=== PATIENT | female | born 1940 | race Caucasian/White ===

== ENCOUNTER → 2017-12-12 | Outpatient (CLI) | payer OTHER ==
[~2017-12-12] MED LIST: ACCUNEB1.25 MG/3; ACETAMINOPHEN325 M1 PO; ALBUTEROL INHAL17 GM IH; ALEVE220 MG PO; AMBIEN 10 MG TA10 MG PO; ASPIRIN81 M2 PO; AZITHROMYCIN 2250 MG PO; B-100 COMPLEX100 MG; B-12 COMPL1000 MCG/1 IJ; B-12 DOTS500 MCG PO; B12INJ; B12INJ IM; BACTRIM DS TAB1 EACH PO; BROVANA15 MCG/2 M IH; CALTRATE-600 W1 EACH; CALTRATE-600 W1 EACH PO; CENTRUM CHEWAB1 EACH; CENTRUM TABLET1 TAB PO; CIPRO500 MG/5 M PO; CITRATE OF MAG296 ML PO; CLONAZEPAM; CLONAZEPAM 1 MG1 M1; CLONAZEPAM 1 MG1 M1 PO; CYMBALTA60 MG PO; Cefuroxime PO; DULCOLAX5 MG PO; DUONEB 2.5-0.5 M3 ML INH; ERYTHROMYCIN250 MG PO; FISH OIL 1,0001 EAC5 PO; FLAGYL500 MG PO; FLEXERIL PO; FLORINEF ACETA0.1 MG PO; FORMULA 303 PO; HYDROCODONE-AP1 EAC6 PO; LAMISIL250 MG PO; LORTAB 5 MG/5001 TA1; LYRICA 75 MG CA75 MG PO; LYRICA150 MG PO; MEDROL DOSPAK21 TAB PO; MEDROLDOSEPACK PO; METROGEL60 GM TOP; MIRTAZAPINE7.5 MG; MOBIC15 MG; NOHOMEMEDICATIONS; NORCO 5-325 TA1 EACH PO; OMEGA-31000 MG; OMEGA-31000 MG PO; OMEPRAZOLE; OMEPRAZOLE40 MG PO; PANTOPRAZOLE SO40 M1 PO; PERCOCET 5-3251 EACH PO; POTASSIUM; PREDNISONE 10 M10 M1; PREDNISONE 10 M10 M1 PO; PRESERVISION T1 EACH PO; PRILOSEC40 MG; PRILOSEC40 MG PO; PROTONIX40 M2 PO; PULMICORT0.5 MG/2 M IH; SINGULAIR 10 MG10 M1 PO; TAMSULOSIN HCL0.4 M1 PO; VALIUM5 MG PO; VICODIN 5-5001 EACH PO; VITAMIN B 12; VITAMIN B-12500 MCG PO; ZOFRAN ODT4 MG PO; ZOFRAN4 MG PO; Zovirax PO; [UNRECOGNIZED DRUG - OTHER]; [UNRECOGNIZED DRUG - OTHER]; [UNRECOGNIZED DRUG - OTHER] PO; [UNRECOGNIZED DRUG - OTHER] PO
== END ==
LOC: M.RAD 13:50
DX: Z12.31 Encounter for screening mammogram for malignant neoplasm of breast (principal); M81.0 Age-related osteoporosis without current pathological fracture; Z78.0 Asymptomatic menopausal state

== ENCOUNTER → 2020-08-22 | Emergency (ER) | payer OTHER ==
[~2020-08-22] VITALS: Ht 152.4 cm; Wt 54.0 kg
[~2020-08-22] MED LIST changes: +ASA81BEC PO; +ATORVASTATIN CA10 MG PO; +HYDROCODON-ACE1 EAC7 PO
[2020-08-22 09:55] LABS: URINE BILIRUBIN NEGATIVE (Negative); URINE BLOOD TRACE (Negative); URINE CLARITY CLEAR; URINE COLOR YELLOW; URINE GLUCOSE-RANDOM NEGATIVE (Negative); URINE KETONES NEGATIVE (Negative); URINE LEUKOCYTES-REFLEX NEGATIVE (Negative); URINE NITRITE-REFLEX NEGATIVE (Negative); URINE PROTEIN NEGATIVE (Negative); URINE SPECIFIC GRAVITY 1.015 (1.005-1.030); URINE UROBILINOGEN 0.2 E.U./dl (0.2-1.0)
[2020-08-22 10:24] LABS: ABSOLUTE EOSINOPHILS 0.2 thou/uL (0.0-0.7); ABSOLUTE LYMPHOCYTES 2.3 thou/uL (0.8-5.3); ABSOLUTE MONOCYTES 0.7 thou/uL (0.0-1.2); BASOPHILS 0.3 %; EOSINOPHILS 2.6 %; MCH 30.3 pg (26.0-34.0); MCHC 33.2 g/dL (28.0-37.0); MCV 91.3 fL (80.0-100.0); MONOCYTES 9.4 %; MPV 8.9 fl. (7.2-11.1); NUCLEATED RBCS 0 /100WBC; PLATELET COUNT* 227 thou/uL (150-400); POLYS 55.7 %; RBC 4.27 mil/uL (4.20-5.00); RDW-CV 14.1 % (10.5-14.5); WBC 7.1 thou/uL (4.0-11.0)
[2020-08-22 10:38] LABS: CALCIUM 9.2 mg/dL (8.5-10.1); CREATININE 0.9 mg/dL (0.6-1.3); POTASSIUM 3.8 mmol/L (3.5-5.1)
[2020-08-22 10:43] LABS: ALBUMIN 3.7 g/dL (3.4-5.0); TOTAL BILIRUBIN 0.3 mg/dL (<0.1-1.0); TOTAL PROTEIN 6.6 g/dL (6.4-8.2)
[2020-08-22 12:15] VITALS: BP 136/53
--- NOTE | 2020-08-22 15:03 | EKG ---
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
== END ==
LOC: M.ERS 09:25
PROVIDERS: Emergency Medicine Emergency Medical Services
DX: M54.5 Low back pain (principal); R10.31 Right lower quadrant pain; R10.32 Left lower quadrant pain; M79.7 Fibromyalgia; Z88.1 Allergy status to other antibiotic agents; Z90.49 Acquired absence of other specified parts of digestive tract; Z90.89 Acquired absence of other organs; Z90.710 Acquired absence of both cervix and uterus; Z86.73 Personal history of transient ischemic attack (TIA), and cerebral infarction without residual deficits; Z86.14 Personal history of Methicillin resistant Staphylococcus aureus infection

== ENCOUNTER 2020-08-28 15:04 | Emergency (ER) | payer OTHER ==
[~2020-08-28] VITALS: Ht 157.5 cm; Wt 51.7 kg
[2020-08-28 15:26] LABS: URINE BILIRUBIN NEGATIVE (Negative); URINE BLOOD NEGATIVE (Negative); URINE CLARITY CLEAR; URINE COLOR YELLOW; URINE GLUCOSE-RANDOM NEGATIVE (Negative); URINE KETONES TRACE (Negative); URINE LEUKOCYTES-REFLEX TRACE (Negative); URINE PROTEIN NEGATIVE (Negative); URINE SPECIFIC GRAVITY 1.025 (1.005-1.030); URINE UROBILINOGEN 0.2 E.U./dl (0.2-1.0)
[2020-08-28 15:27] LABS: URINE NITRITE-REFLEX POSITIVE (Negative)
[2020-08-28 15:32] LABS: HYALINE CASTS 0-3 Few /LPF (None Seen); SQUAMOUS >10 Many /LPF (0-3)
[2020-08-28 15:33] LABS: BACTERIA-REFLEX >30 Many /HPF (None Seen)
[2020-08-28 15:34] LABS: CRYSTALS None Seen /LPF (None Seen); MUCUS None Seen strn/LPF (None Seen); URINE RBC None Seen /HPF (0-2); URINE WBC-REFLEX 6-15 Few /HPF (0-5)
[2020-08-28 15:52] LABS: ABSOLUTE EOSINOPHILS 0.2 thou/uL (0.0-0.7); ABSOLUTE LYMPHOCYTES 2.4 thou/uL (0.8-5.3); ABSOLUTE MONOCYTES 0.6 thou/uL (0.0-1.2); ABSOLUTE NEUTROPHILS 4.3 thou/uL (1.6-8.1); BASOPHILS 0.4 %; HEMATOCRIT 42.8 % (37.0-47.0); HEMOGLOBIN 14.2 gm/dL (12.0-15.0); LYMPHOCYTES 32.1 %; MCH 30.2 pg (26.0-34.0); MCHC 33.2 g/dL (28.0-37.0); MCV 90.8 fL (80.0-100.0); MONOCYTES 8.1 %; NUCLEATED RBCS 0 /100WBC; PLATELET COUNT* 249 thou/uL (150-400); POLYS 56.4 %; RBC 4.72 mil/uL (4.20-5.00); RDW-CV 13.8 % (10.5-14.5); WBC 7.5 thou/uL (4.0-11.0)
[2020-08-28 16:05] LABS: CALCIUM 9.8 mg/dL (8.5-10.1); CREATININE 0.9 mg/dL (0.6-1.3); POTASSIUM 3.6 mmol/L (3.5-5.1)
[2020-08-28 16:10] LABS: TOTAL BILIRUBIN 0.4 mg/dL (<0.1-1.0); TOTAL PROTEIN 7.8 g/dL (6.4-8.2)
--- NOTE | 2020-08-28 17:09 | EKG ---
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
[2020-08-28] MEDS ORDERED: HYDROCODON-ACE1 EAC7 PO (18:41)
[2020-08-28] MEDS ORDERED: IBUPROFEN 600600 M1 PO (18:43)
[2020-08-28 19:15] VITALS: BP 127/55
[2020-08-28] MEDS ORDERED: KEFLEX500 M1 PO (19:51)
== END 2020-08-28 19:18 | disposition home or self-care (01) ==
LOC: M.ERS 15:04
PROVIDERS: Physician Assistant
DX: S22.089A Unspecified fracture of T11-T12 vertebra, initial encounter for closed fracture (principal); N39.0 Urinary tract infection, site not specified; M79.7 Fibromyalgia; Z90.89 Acquired absence of other organs; Z90.49 Acquired absence of other specified parts of digestive tract; Z90.711 Acquired absence of uterus with remaining cervical stump; Z86.14 Personal history of Methicillin resistant Staphylococcus aureus infection; Z86.73 Personal history of transient ischemic attack (TIA), and cerebral infarction without residual deficits; Z98.890 Other specified postprocedural states; Z79.899 Other long term (current) drug therapy; Z79.82 Long term (current) use of aspirin; Z88.1 Allergy status to other antibiotic agents; X50.0XXA Overexertion from strenuous movement or load, initial encounter; Y93.89 Activity, other specified; Y92.098 Other place in other non-institutional residence as the place of occurrence of the external cause; Y99.8 Other external cause status

== ENCOUNTER 2021-08-03 10:12 | Emergency (ER) | payer OTHER ==
[~2021-08-03] VITALS: Ht 154.9 cm; Wt 52.2 kg
[~2021-08-03 10:12] MED LIST changes: +IBUPROFEN 600600 M1 PO; +KEFLEX500 M1 PO
[2021-08-03 10:35] LABS: URINE BILIRUBIN NEGATIVE (Negative); URINE BLOOD TRACE (Negative); URINE CLARITY CLEAR; URINE COLOR YELLOW; URINE GLUCOSE-RANDOM NEGATIVE (Negative); URINE KETONES NEGATIVE (Negative); URINE LEUKOCYTES-REFLEX TRACE (Negative); URINE PROTEIN NEGATIVE (Negative); URINE SPECIFIC GRAVITY 1.015 (1.005-1.030); URINE UROBILINOGEN 0.2 E.U./dl (0.2-1.0)
[2021-08-03 10:37] LABS: URINE NITRITE-REFLEX POSITIVE (Negative)
--- NOTE | 2021-08-03 10:47 | EKG ---
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1940 Requested By: Eun Coates Order Number: [id number] MD: Hank Bonlila Measurements Intervals [place] Rate: 70 P: [place]: QRS: 43 QRSD: 81 T: -29 QT: 414 QTc: 447 Interpretive Statements sinus rhythm Repol abnrm suggests ischemia, diffuse leads artifact noted Baseline wander in lead(s) V4 Compared to ECG 08/28/2020 15:26:32 Early repolarization now present ST (T wave) deviation now present artifact noted Left ventricular hypertrophy no longer present Electronically Signed On 08-03-2021 10:47:41 MACHINE GRAINER by Hank Bonilla [email or web address] <ELECTRONICALLY SIGNED> By: Hank Bonilla MD, [facility] 08/03/21 1047 1045 1045 Hank Bonilla MD, FAC /EPI
[2021-08-03 10:50] LABS: HYALINE CASTS >10 Many /LPF (None Seen); SQUAMOUS 4-10 Moderate /LPF (0-3)
[2021-08-03 10:51] LABS: CRYSTALS None Seen /LPF (None Seen); URINE RBC 3-10 Few /HPF (0-2); URINE WBC-REFLEX 0-5 Rare /HPF (0-5)
[2021-08-03 11:28] LABS: ABSOLUTE EOSINOPHILS 0.1 thou/uL (0.0-0.7); ABSOLUTE LYMPHOCYTES 1.9 thou/uL (0.8-5.3); ABSOLUTE MONOCYTES 0.6 thou/uL (0.0-1.2); ABSOLUTE NEUTROPHILS 5.4 thou/uL (1.6-8.1); BASOPHILS 0.2 %; EOSINOPHILS 0.9 %; HEMATOCRIT 41.1 % (37.0-47.0); HEMOGLOBIN 13.4 gm/dL (12.0-15.0); LYMPHOCYTES 23.4 %; MCH 29.6 pg (26.0-34.0); MCHC 32.5 g/dL (28.0-37.0); MCV 91.1 fL (80.0-100.0); MONOCYTES 7.8 %; MPV 9.1 fl. (7.2-11.1); NUCLEATED RBCS 0 /100WBC; PLATELET COUNT* 238 thou/uL (150-400); POLYS 67.7 %; RBC 4.51 mil/uL (4.20-5.00); RDW-CV 14.3 % (10.5-14.5)
[2021-08-03 11:38] LABS: CALCIUM 9.2 mg/dL (8.5-10.1)
[2021-08-03 11:43] LABS: ALBUMIN 4.2 g/dL (3.4-5.0); TOTAL BILIRUBIN 0.3 mg/dL (<0.1-1.0); TOTAL PROTEIN 7.5 g/dL (6.4-8.2)
[2021-08-03] MEDS ORDERED: BACTRIM DS TAB1 EACH PO (12:15)
[2021-08-03] MEDS ORDERED: COLACE100 MG PO (12:15)
[2021-08-03 12:27] VITALS: BP 134/72
== END 2021-08-03 12:28 | disposition home or self-care (01) ==
LOC: M.ERS 10:12
PROVIDERS: Student in an Organized Health Care Education/Training Program
DX: K59.00 Constipation, unspecified (principal); R10.12 Left upper quadrant pain; M79.7 Fibromyalgia; R07.81 Pleurodynia; F17.210 Nicotine dependence, cigarettes, uncomplicated; Z87.442 Personal history of urinary calculi; Z90.49 Acquired absence of other specified parts of digestive tract; Z90.89 Acquired absence of other organs; Z90.710 Acquired absence of both cervix and uterus; Z86.14 Personal history of Methicillin resistant Staphylococcus aureus infection; Z86.73 Personal history of transient ischemic attack (TIA), and cerebral infarction without residual deficits; Z88.1 Allergy status to other antibiotic agents; Z79.899 Other long term (current) drug therapy